=== PATIENT | female | born 1990 | race Caucasian/White ===

== ENCOUNTER → 2021-02-22 13:49 | Outpatient (CLI) | payer OTHER, MEDICAID, SELFPAY ==
--- NOTE | 2021-02-22 13:56 | DI.RAD.S_ITS ---
PROCEDURE: XR LUMBAR SPINE 2-3V INDICATIONS: LOW BACK PAIN TECHNIQUE: 3 views of the lumbar spine were acquired. COMPARISON: None. FINDINGS: Bones: 5 [id number] vertebrae are present. There is normal bony alignment. No vertebral body compression fractures. No suspicious bony lesions. Soft tissues: Overlying bowel gas pattern is normal. No suspicious soft tissue calcifications. IMPRESSION: Normal L-spine. Dictated by: William Marquez RRA Interpreted: Magdiel Arroyo MD on 02/22/2021 at 14:21 Transcribed by: NELIA on 02/22/2021 at 14:21 Approved by: Magdiel Arroyo M.D. on 02/22/2021 at 16:33
--- NOTE | 2021-02-22 13:56 | DI.RAD.S_ITS ---
PROCEDURE: XR THORACIC SPINE 2V INDICATIONS: LOW BACK PAIN TECHNIQUE: 3 views of the thoracic spine were acquired. COMPARISON: [facility], CR, XR LUMBAR SPINE 2-3V, 02/22/2021, 13:57. FINDINGS: Bones: No fractures or dislocations. No suspicious bony lesions. 12 pairs of ribs are noted, and appear intact where visualized. Soft tissues: No paravertebral stripe thickening. IMPRESSION: Normal T-spine. Dictated by: William Marquez RR Interpreted: Magdiel Arroyo MD on 02/22/2021 at 14:21 Transcribed by: NELIA on 02/22/2021 at 14:21 Approved by: Magdiel Arroyo M.D. on 02/22/2021 at 16:34
== END ==
PROVIDERS: PCP Naturopath; Referring Provider Naturopath; Visit Provider Naturopath
DX: M54.5 Low back pain (principal); M54.6 Pain in thoracic spine
CPT/HCPCS: 72070; 72100

== ENCOUNTER → 2022-01-15 11:40 | Outpatient (CLI) | payer OTHER, MEDICAID, SELFPAY ==
[2022-01-15 12:22] LABS: Add Manual Diff / Slide Review NO; Basophils Absolute Auto 0 /uL (0-100); Basophils Percent Auto 0.9 % (0-2); Eosinophils Absolute Auto 300 /uL (0-450); Eosinophils Percent Auto 6.4 % (2-4); Hematocrit 43.9 % (36-46); Hemoglobin 14.7 g/dL (12.0-16.0); Lymphocytes Absolute Auto 1400 /uL (1100-4500); Lymphocytes Percent Auto 28.6 % (25-40); Mean Corpuscular HGB Conc 33.6 % (30-36); Mean Corpuscular Hemoglobin 29.6 PG (26-34); Mean Corpuscular Volume 88.1 fL (80-100); Monocytes Absolute Auto 400 /uL (0-900); Neutrophils Absolute Auto 2700 /uL (1500-7000); Neutrophils Percent Auto 55.1 % (50-75); Platelet Count 208 X10^3/uL (150-400); Red Blood Cell Count 4.98 X10^6/uL (4.0-5.2); Red Cell Distribution Width 12.5 % (11.6-14.8); White Blood Cell Count 4.9 X10^3/uL (4.5-11.0)
[2022-01-15 13:19] LABS: Alanine Aminotransferase 16 IU/L (<35); Albumin 4.5 g/dL (3.5-5.0); Albumin Globulin Ratio 1.6 (1.0-2.8); Alkaline Phosphatase 90 U/L (38-126); Aspartate Aminotransferase 23 IU/L (14-36); BUN Creatinine Ratio 18.6 (6-22); Bilirubin Total 0.4 mg/dL (0.2-1.3); Blood Urea Nitrogen 11 mg/dL (7-17); Calcium 8.9 mg/dL (8.4-10.2); Carbon Dioxide 25 mmol/L (22-32); Chloride 105 mmol/L (98-107); Estimated Glomerular Filt Rate > 60 mL/min (>60); Globulin 2.9 g/dL (1.7-4.1); Glucose 81 mg/dL (70-100); HEMOLYSIS < 15 (0-50); Potassium 4.3 mmol/L (3.4-5.1); Sodium 139 mmol/L (137-145); Total Protein 7.4 g/dL (6.3-8.2)
[2022-01-15 14:09] LABS: Thyroid Stimulating Hormone 1.38 uIU/mL (0.47-4.68)
[2022-01-16 21:02] LABS: Free T3, Triiodothyronine Free 3.53 pg/mL (2.77-5.27); Free T4, Direct Thyroxine 1.03 ng/dL (0.78-2.19)
[2022-01-16 21:58] LABS: Deamidated Gliadin Ab IgA 3 units (0-19); Deamidated Gliadin Ab IgG 1 units (0-19); Immunoglobulin A,Qn 187 mg/dL (87-352); t-Transglutaminase IgA <2 U/mL (0-3)
[2022-01-17 05:14] LABS: Vitamin B12 496 pg/mL (239-931)
[2022-01-17 05:51] LABS: Folate 17.2 ng/mL (2.76-20.0)
== END ==
PROVIDERS: PCP Naturopath; Referring Provider Surgery; Visit Provider Surgery
DX: R10.13 Epigastric pain; K92.2 Gastrointestinal hemorrhage, unspecified
CPT/HCPCS: 36415; 80053; 82607; 82746; 82784; 83516; 84439; 84443; 84481; 85025; 99213

== ENCOUNTER → 2022-01-24 11:10 | Outpatient (CLI) | payer OTHER, MEDICAID, SELFPAY ==
--- NOTE | 2022-01-24 11:11 | DI.US.S_ITS ---
PROCEDURE: US ABDOMEN LIMITED INDICATIONS: Abdominal pain TECHNIQUE: Real-time focused scanning was performed of the abdomen, with image documentation. COMPARISON: None. FINDINGS: Fairly diffuse intrahepatic biliary ductal dilatation with dilatation of the common hepatic duct up to 7 mm and dilatation of the common bile duct up to 9 mm. There is no intraluminal or extraluminal obstructing lesion identified. The gallbladder is normally distended without wall thickening or pericholecystic fluid. No sludge or gallstone demonstrated. Pancreatic duct appears mildly dilated up to 3-4 mm. Liver is normal. IMPRESSION: Intrahepatic and extrahepatic biliary ductal dilatation,, with possible borderline dilatation of the pancreatic duct also. Findings are worrisome for an obstructing lesion. Pancreatic protocol contrast enhanced CT or MRI recommended. Dictated by: Deng Franks M.D. on 01/24/2022 at 14:27 Approved by: Deng Franks M.D. on 01/24/2022 at 14:35
== END ==
PROVIDERS: PCP Naturopath; Referring Provider Surgery; Visit Provider Surgery
DX: K83.8 Other specified diseases of biliary tract (principal); R10.13 Epigastric pain
CPT/HCPCS: 76705

== ENCOUNTER → 2022-02-04 09:19 | Outpatient (CLI) | payer OTHER, MEDICAID, SELFPAY ==
[2022-02-04 12:47] LABS: COVID19 -Nasal RAPID Negative (Negative)
== END ==
PROVIDERS: PCP Naturopath; Visit Provider Surgery
DX: Z20.822 Contact with and (suspected) exposure to COVID-19 (principal); Z01.812 Encounter for preprocedural laboratory examination
CPT/HCPCS: 87635; C9803

== ENCOUNTER 2022-02-06 13:25 | Day surgery (SDC) | payer OTHER, MEDICAID, SELFPAY ==
[2022-02-06] VITALS (8 sets, daily range): BP systolic 115–139; BP diastolic 76–91; PULSE 73–95; RESP 11–20; TEMP 36.1–37; O2SAT 96–100; BMI 25.9
--- NOTE | 2022-02-06 | PATH_ITS ---
[facility] Accession Number: [id number] . 01 Material submitted: . PART A: duodenum - DUODENUM BIOPSY PART B: gastrointestinal site - ANTRUM BIOPSY PART C: small bowel - TERMINAL ILEUM BIOPSY . 01 Diagnosis: A. Duodenum, Biopsy: Small bowel mucosa with no diagnostic abnormality. Negative for active inflammation, features of sprue, dysplasia, or malignancy. . B. Stomach, Antrum, Biopsy: Antral mucosa with mild chronic gastritis. Negative for Helicobacter by immunohistochemistry. Negative for intestinal metaplasia. Negative for dysplasia and malignancy. . C. Terminal Ileum, Biopsy: Small bowel mucosa with no diagnostic abnormality. Negative for active inflammation, dysplasia, and malignancy. [facility] 02/10/2022 1620 Local . 01 Electronically signed: . Payton David MD, Pathologist NPI- [id number] . 01 Gross description: . Part A: DUODENUM BIOPSY: Received in formalin are 3 fragment(s) of salazar, soft tissue measuring 0.3 x 0.2 x 0.2 cm to 0.2 x 0.2 x 0.1 cm submitted entirely in 1 cassette(s) Part B: ANTRUM BIOPSY: Received in formalin are 3 fragment(s) of salazar, soft tissue measuring 0.4 x 0.3 x 0.2 cm to 0.3 x 0.2 x 0.2 cm submitted entirely in 1 cassette(s) Part C: TERMINAL ILEUM BIOPSY: Received in formalin are 2 fragment(s) of salazar, soft tissue measuring 0.3 x 0.2 x 0.1 cm to 0.2 x 0.2 x 0.2 cm submitted entirely in 1 cassette(s) /[facility] 02/07/2022 0256 Local . 01 Microscopic: . B. An immunohistochemical stain was performed to evaluate for Helicobacter organisms and is negative. The control stain showed appropriate reactivity. . * This test was developed and its performance characteristics determined by [facility]. It has not been cleared or approved by the U.S. Food and Drug Administration. The FDA has determined that such clearance or approval is not necessary. This test is used for clinical purposes. It should not be regarded as investigational or for research. . 01 Pathologist provided ICD-10: R10.9, K62.89 . 01 CPT . 765083, 731786, 513927, [id number] Specimen Comment: A courtesy copy of this report has been sent to [phone] Performed at: 01 [facility] [address] [facility], [place], [place] [id number] MD Wilman Carroll MD Phone: [phone]
[2022-02-06] MEDS: LACTATED RINGERS 1,000 ML 42 ML IV (14:13)
--- NOTE | 2022-02-06 14:29 | P.HP_ITS ---
History of Present Illness History of Present Illness Date Patient Seen: 02/06/22 Time Patient Seen: 14:29 [place]: [facility] [place]: Hollis is here for her procedure. She reports she continues to have left lower quadrant and right upper quadrant abdominal pain. A recent ultrasound showed no gallstones but there was questionable dilation of the bile ducts and she is waiting get a CT pancreas protocol. Patient History Medical History (Updated 01/15/22 @ 16:05 by Jasmin Ramirez RN) Asthma Endometriosis Seasonal allergies Surgical History (Updated 01/15/22 @ 16:05 by Jasmin Ramirez RN) History of removal of ovarian cyst [place] teeth extracted Family & Social History Family History (Updated 01/15/22 @ 16:07 by Jasmin Ramirez RN) Father Hypertension Grandmother Hypertension Heart attack Social History: household members family,friend(s) Tobacco & Substance use: Smoking Status Never smoker alcohol intake frequency holiday/special occasion Substance Use Type marijuana Meds Home Medications and Allergies Allergies Allergy/AdvReac Type Severity Reaction Status Date / Time adhesive tape AdvReac Intermediate Rash Verified 02/06/22 13:49 Exam Vital Signs (past 8 hours): - 02/06/22 13:52 Temperature 97.2 F L Pulse Rate 95 H Respiratory Rate 20 Blood Pressure 125/85 Pulse Oximetry 98 Oxygen Delivery Method Room Air Oxygen Delivery Method Room Air Const General: healthy appearing Resp Effort & Inspection: normal respiratory effort GI Palpation: soft Assessment & Plan Assessment and plan (1) Rectal bleeding: Status: Acute (2) Dyspepsia: Status: Acute Plan We discussed the risks and benefits of EGD and colonoscopy and she would like to proceed. She will be getting a CT pancreas protocol in the near future. COVID-19 COVID-19 status: Negative Result date/Date tested (Pos, Neg/Pending): 02/05/22 Time Spent With Patient Critical Care time: I spent a total of [] minutes of critical care time on this patient's care today; this time is exclusive of procedural time.
[2022-02-06] MEDS: LIDOCAINE 4% SOLN 50 ML 20 ML TOP (14:35)
[2022-02-06] MEDS: MIDAZOLAM 5 MG/5 ML VIAL 14 MG IV (14:59)
[2022-02-06] MEDS: fentaNYL 250 MCG/5 ML INJ IV (14:59)
--- NOTE | 2022-02-06 15:13 | PM.OP.EC ---
Operative Date/Time/Diagnoses Date of procedure: 02/06/22 Time of procedure: 15:13 Pre-op diagnosis: Dyspepsia and rectal bleeding Post-op diagnosis: same Procedure & Clinicians Study performed: EGD and colonoscopy Same procedure as scheduled: Yes Surgeon: Billy Chambers Procedure Notes Procedure in detail: Surgeon: Billy Chambers MD Procedure in detail: A timeout was performed. A bite blocked was placed and monitors were attached to the patient. The patient was positioned in a left lateral decubitus position. Sedation was administered with Versed and fentanyl. Once the patient was sedated the endoscope was inserted through the bite block and passed through the esophagus and stomach and into the duodenum. Random biopsies were taken of the duodenal mucosa. The scope was withdrawn into the duodenal bulb and no abnormalities were noted there. The scope was withdrawn into the stomach and mild antritis was noted. Random biopsies were taken from the antrum using cold forceps. The rest of the stomach was normal. The endoscope was retroflexed and no hiatal hernia was noted. The endoscope was straightned and withdrawn into the esophagus. No abnormalities were noted in the esophagus. Findings: Mild antritis Next we repositioned the patient for a colonoscopy. A digital rectal exam was performed and was normal. The colonoscope was inserted and advanced to the cecum. The appendiceal orifice was identified and photographed. The terminal ileum was intubated and random biopsies were taken from the terminal ileum using cold forceps. The scope was slowly withdrawn over greater than 6 minutes. No abnormalities were noted in the colon. The scope was retroflexed in the rectum no abnormalities were noted. Findings: Normal colon EBL: 5 mL Scope withdrawal time: 8 Sedation minutes: 46 Post-procedure Recommendations: Will call with biopsy results Disposition: PACU
--- NOTE | 2022-02-06 17:25 | SUR.PHASEII ---
Discharged patient home at 1700 in stable condition with mother. All vital signs WNL; patient awake and speaking in full sentences. Denies any pain or nausea.
== END 2022-02-06 17:00 | disposition home or self-care (01) ==
PROVIDERS: PCP Naturopath; Referring Provider Surgery; Visit Provider Surgery
PROC: 0DJ08ZZ Inspection of Upper Intestinal Tract, Via Natural or Artificial Opening Endoscopic (ICD-10-PCS; CPT 43235; principal; 2022-02-06 14:45)
PROC: 0DJD8ZZ Inspection of Lower Intestinal Tract, Via Natural or Artificial Opening Endoscopic (ICD-10-PCS; CPT 45378; 2022-02-06 14:45)
DX: K62.5 Hemorrhage of anus and rectum (principal); R10.13 Epigastric pain; K29.60 Other gastritis without bleeding; R10.32 Left lower quadrant pain; R10.11 Right upper quadrant pain
CPT/HCPCS: 43239; 45380; 81025; 99152; 99153; J2250; J3010

== ENCOUNTER → 2022-02-18 09:39 | Outpatient (CLI) | payer OTHER, MEDICAID, SELFPAY ==
--- NOTE | 2022-02-18 09:41 | DI.US.S_ITS ---
PROCEDURE: US PELVIC COMPLETE INDICATIONS: pelvic pain, h/o endometriosis TECHNIQUE: Real-time scanning was performed of the pelvic organs, with image documentation. Additional endovaginal scanning was necessary due to incomplete visualization of the adnexal and endometrial structures by transabdominal scanning. COMPARISON: None. FINDINGS: Uterus: Uterus is anteverted and normal in size at 8.4 x 5.8 x 3.8 cm. The myometrium is homogeneous. The endometrium measures 11 mm combined thickness. Ovaries: The right ovary measures 4.1 x 1.9 x 2.4 cm and demonstrates a simple appearing paraovarian cyst that measures up to 2.1 cm. The left ovary measures 3.1 x 3.3 x 2.5 cm. No adnexal masses are seen. Other: No pathologic free abdominal or pelvic fluid. Note is made of dilated pelvic vessels within the left adnexal region, with the largest demonstrating a caliber 5.2 mm. IMPRESSION: Dilated left adnexal vessels are seen. Please consider pelvic congestion syndrome. A 2.1 cm right paraovarian cyst is seen, which is considered to be within physiologic limits. We strive to produce accurate, complete, and clear reports of imaging services. To assist us in improving patient care, this report was composed using standard report templates and voice recognition software. Therefore, it may contain abnormal punctuation, insertions and/or omissions. Occasional wrong-word or sound-alike substitutions may occur. Though we review the report and make efforts to correct it, we do recommend that the report be read carefully in proper context to recognize any text inaccuracies. Dictated by: Jimmy Jimenez M.D. on 02/18/2022 at 10:28 Approved by: Jimmy Jimenez M.D. on 02/18/2022 at 10:30
--- NOTE | 2022-02-18 12:08 | DI.CT.S_ITS ---
PROCEDURE: CT ABDOMEN PANCREATIC PROTOCOL INDICATIONS: abnormal US TECHNIQUE: After the administration of intravenous contrast, 3 mm thick pancreatic-phase images acquired from the diaphragm to the iliac crests. 3 mm thick coronal and sagittal reformats were performed. For radiation dose reduction, the following was used: automated exposure control, adjustment of mA and/or kV according to patient size. COMPARISON: Ultrasound same day, 01/24/2022 ultrasound FINDINGS: Image quality: Excellent. Lung bases: Lung bases are clear. Heart size is normal. Pancreas: No ductal dilation. No mass. Other solid organs: The liver is unremarkable. Gallbladder is unremarkable. Mildly dilated common bile duct measuring 6 millimeters. At the ampullary insertion, there is a duodenal diverticulum measuring about 19 x 10 millimeters. Spleen, adrenals, and kidneys are otherwise unremarkable. Peritoneum and bowel: Small hiatal hernia. No ascites or bowel obstruction. Nodes and vessels: No lymphadenopathy. No abdominal aortic aneurysm. Bones: No suspicious bony lesions. No vertebral body compression fractures. Miscellaneous: No ventral hernias. IMPRESSION: Mildly dilated common bile duct measuring 6 millimeters. At the ampulla, there is a duodenal diverticulum. No calcified gallstone or discrete masses seen. Continued clinical and laboratory follow-up is recommended. If these parameters worsen, consider reimaging with MRCP and/or GI consultation. Dictated by: Dale Oquendo M.D. on 02/18/2022 at 13:37 Approved by: Dale Oquendo M.D. on 02/18/2022 at 13:45
== END ==
PROVIDERS: PCP Naturopath; Referring Provider Obstetrics & Gynecology; Visit Provider Obstetrics & Gynecology
DX: N83.201 Unspecified ovarian cyst, right side (principal); N94.89 Other specified conditions associated with female genital organs and menstrual cycle; R10.2 Pelvic and perineal pain
CPT/HCPCS: 74160; 76830; 76856; Q9967